=== PATIENT | male | born 1975 | race Caucasian/White ===

== ENCOUNTER 2018-04-25 04:38 | Emergency (ER) | payer OTHER ==
[~2018-04-25] VITALS: Ht 182.9 cm; Wt 125.2 kg
[~2018-04-25 04:38] MED LIST: ALBU90OI INH; AMLO5 PO; Amlodipine Besyl5 MG PO; ESCI10 PO; HYDCHL12.5 PO; Hydrochloroth12.5 MG PO; IBUP400 PO; IBUP800 PO; Inderal 20 mg T20 MG PO; Inderal60 MG; Inderal60 MG PO; LEVFLO500 PO; LISI20; LISI20 PO; Lexapro 10 mg T10 MG PO; METO25 PO; Norco 5-325 Ta1 EACH PO; OMEP10ER PO; OXYACE5T PO; PROM25 PO; SERT100 PO; SPACE CHAMBER1 EACH MC; TAMS.4ER PO; Vistaril25 MG PO; Voltaren100 GM TOP; Xanax0.5 MG PO; Zithromax250 MG PO
[2018-04-25] MEDS ORDERED: Vistaril25 MG PO ×4 (06:31→06:36)
[2018-04-25] MEDS ORDERED: IBUP800 PO ×2 (06:31→06:41)
[2018-04-25] MEDS ORDERED: HYDCHL12.5 PO ×3 (06:31→06:36)
[2018-04-25] MEDS ORDERED: LISI20 PO ×2 (06:31→06:36)
[2018-04-25] MEDS ORDERED: Lexapro 10 mg T10 MG PO ×3 (06:31→06:36)
[2018-04-25] MEDS ORDERED: Inderal 20 mg T20 MG PO ×2 (06:31→06:36)
[2018-04-25] MEDS ORDERED: CEPH500 PO (07:00)
[2018-04-25] MEDS ORDERED: Bactrim Ds Tab1 EACH PO (07:00)
[2018-04-25] MEDS ORDERED: Nystop60 GM TOP (07:00)
[2018-04-25] MEDS ORDERED: AMLO5 PO (20:56)
[2018-04-25] MEDS ORDERED: MICROZIDE12.5 MG PO (23:39)
[2018-04-26] MEDS ORDERED: LISI20 PO (02:48)
== END 2018-04-25 07:10 | disposition home or self-care (01) ==
LOC: ER 04:38
DX: L02.416 Cutaneous abscess of left lower limb (principal); B37.2 Candidiasis of skin and nail; Z79.899 Other long term (current) drug therapy; I10 Essential (primary) hypertension; F32.9 Major depressive disorder, single episode, unspecified; F41.9 Anxiety disorder, unspecified; E11.9 Type 2 diabetes mellitus without complications; F17.210 Nicotine dependence, cigarettes, uncomplicated
CPT/HCPCS: 10061; 99283-25

== ENCOUNTER 2018-04-25 16:33 | Inpatient (IN) | payer OTHER ==
[~2018-04-25] VITALS: Ht 182.9 cm; Wt 126.2 kg
[~2018-04-25 16:33] MED LIST changes: +Bactrim Ds Tab1 EACH PO; +CEPH500 PO; +Nystop60 GM TOP
[2018-04-25 17:47] LABS: BASOPHILS ABSOLUTE AUTO 0.03 K/mm3 (0.00-0.23); BASOPHILS PERCENT AUTO 0 % (0-2); EOSINOPHILS ABSOLUTE AUTO 0.02 K/mm3 (0.00-0.68); EOSINOPHILS PERCENT AUTO 0 % (0-6); Hematocrit 46.6 % (37.0-53.0); Hemoglobin 15.4 g/dL (13.5-17.5); IMMATURE GRAN ABSOLUTE AUTO 0.06 K/mm3 (0.00-0.10); IMMATURE GRAN PERCENT AUTO 0 % (0-1); LYMPHOCYTES ABSOLUTE AUTO 0.95 K/mm3 (0.84-5.20); LYMPHOCYTES PERCENT AUTO 7 % (21-46); MONOCYTES ABSOLUTE AUTO 0.74 K/mm3 (0.16-1.47); MONOCYTES PERCENT AUTO 5 % (4-13); Mean Corpuscular HGB 34.4 pg (26.0-34.0); Mean Corpuscular Volume 104 fL (80-100); Mean Platelet Volume 10.6 fL (9.1-12.4); NEUTROPHILS ABSOLUTE AUTO 12.43 K/mm3 (1.96-9.15); NEUTROPHILS PERCENT AUTO 87 % (41-73); Platelet Count 209 K/mm3 (150-400); RDW Coefficient Variation 15.1 % (11.7-14.2); RDW Standard Deviation 58.4 fL (35.1-46.3); Red Blood Cell Count 4.48 M/mm3 (4.30-5.90); White Blood Cell Count 14.23 K/mm3 (4.00-11.30)
[2018-04-25 18:04] LABS: Alanine Aminotransfer (ALT/SGP 49 U/L (12-78); Albumin, Blood 3.2 g/dL (3.4-5.0); Albumin/Globulin Ratio 0.8 (0.8-1.8); Alk Phos 91 U/L (50-136); Anion Gap 7 mmol/L (6-16); Aspartate Aminotrans (AST/SGOT 19 U/L (12-37); Bilirubin, Total 0.7 mg/dL (0.1-1.0); Blood Urea Nitrogen 10 mg/dL (8-24); Bun/Creatinine Ratio 13.2 (12.0-20.0); CO2, Blood 25 mmol/L (21-32); Calcium, Blood 8.6 mg/dL (8.5-10.1); Chloride, Blood 107 mmol/L (98-108); Creatinine, Blood 0.76 mg/dL (0.60-1.20); Globulin, Blood 3.8 g/dL (2.2-4.0); Glomerular Filtration Rate >60 (60-); Glucose, Blood 155 mg/dL (70-99); Potassium, Blood 3.4 mmol/L (3.5-5.5); Sodium, Blood 139 mmol/L (136-145)
[2018-04-25] MEDS ORDERED: AMLO5 PO (20:56)
[2018-04-25] MEDS ORDERED: MICROZIDE12.5 MG PO (23:39)
[2018-04-26] MEDS ORDERED: LISI20 PO (02:48)
[2018-04-26 05:30] LABS: BASOPHILS ABSOLUTE AUTO 0.01 K/mm3 (0.00-0.23); BASOPHILS PERCENT AUTO 0 % (0-2); EOSINOPHILS ABSOLUTE AUTO 0.02 K/mm3 (0.00-0.68); EOSINOPHILS PERCENT AUTO 0 % (0-6); Hematocrit 44.7 % (37.0-53.0); Hemoglobin 14.6 g/dL (13.5-17.5); IMMATURE GRAN ABSOLUTE AUTO 0.05 K/mm3 (0.00-0.10); IMMATURE GRAN PERCENT AUTO 0 % (0-1); LYMPHOCYTES ABSOLUTE AUTO 0.92 K/mm3 (0.84-5.20); LYMPHOCYTES PERCENT AUTO 8 % (21-46); MONOCYTES ABSOLUTE AUTO 0.83 K/mm3 (0.16-1.47); MONOCYTES PERCENT AUTO 7 % (4-13); Mean Corpuscular HGB 34.1 pg (26.0-34.0); Mean Corpuscular HGB Conc 32.7 g/dL (31.5-36.5); Mean Corpuscular Volume 104 fL (80-100); Mean Platelet Volume 10.6 fL (9.1-12.4); NEUTROPHILS ABSOLUTE AUTO 10.24 K/mm3 (1.96-9.15); NEUTROPHILS PERCENT AUTO 85 % (41-73); Platelet Count 190 K/mm3 (150-400); RDW Coefficient Variation 14.8 % (11.7-14.2); RDW Standard Deviation 57.9 fL (35.1-46.3); Red Blood Cell Count 4.28 M/mm3 (4.30-5.90); White Blood Cell Count 12.07 K/mm3 (4.00-11.30)
[2018-04-27 05:32] LABS: BASOPHILS ABSOLUTE AUTO 0.02 K/mm3 (0.00-0.23); BASOPHILS PERCENT AUTO 0 % (0-2); EOSINOPHILS ABSOLUTE AUTO 0.06 K/mm3 (0.00-0.68); EOSINOPHILS PERCENT AUTO 1 % (0-6); Hematocrit 44.3 % (37.0-53.0); Hemoglobin 14.5 g/dL (13.5-17.5); IMMATURE GRAN ABSOLUTE AUTO 0.05 K/mm3 (0.00-0.10); IMMATURE GRAN PERCENT AUTO 1 % (0-1); LYMPHOCYTES ABSOLUTE AUTO 0.99 K/mm3 (0.84-5.20); LYMPHOCYTES PERCENT AUTO 10 % (21-46); MONOCYTES ABSOLUTE AUTO 0.73 K/mm3 (0.16-1.47); MONOCYTES PERCENT AUTO 7 % (4-13); Mean Corpuscular HGB Conc 32.7 g/dL (31.5-36.5); Mean Corpuscular Volume 104 fL (80-100); Mean Platelet Volume 10.7 fL (9.1-12.4); NEUTROPHILS ABSOLUTE AUTO 8.19 K/mm3 (1.96-9.15); NEUTROPHILS PERCENT AUTO 82 % (41-73); Platelet Count 195 K/mm3 (150-400); RDW Coefficient Variation 14.7 % (11.7-14.2); RDW Standard Deviation 56.6 fL (35.1-46.3); Red Blood Cell Count 4.26 M/mm3 (4.30-5.90); White Blood Cell Count 10.04 K/mm3 (4.00-11.30)
[2018-04-27 06:04] LABS: Vancomycin, Trough 9.2 ug/mL (5.0-10.0)
== END 2018-04-27 15:03 | disposition home or self-care (01) | DRG 603 ==
LOC: ER 16:33 → MEDS 16:34
PROVIDERS: Hospitalist; Physician Assistant; ADMIT Hospitalist
DX: L03.116 Cellulitis of left lower limb (principal); I10 Essential (primary) hypertension; F41.8 Other specified anxiety disorders; F17.210 Nicotine dependence, cigarettes, uncomplicated; E87.6 Hypokalemia; E11.65 Type 2 diabetes mellitus with hyperglycemia; R00.0 Tachycardia, unspecified; B37.2 Candidiasis of skin and nail
CPT/HCPCS: 10061; 36415; 73701; 80053; 80202; 82947; 85025; 87040; 96365; 96366; 96367; 96372; 99283-25; 99284-25; G0378; J0690; J1650; J3370; J7050; Q9967

== ENCOUNTER 2018-05-16 11:52 | Observation (INO) | payer OTHER ==
[~2018-05-16] VITALS: Ht 182.9 cm; Wt 127.3 kg
[~2018-05-16 11:52] MED LIST changes: +MICROZIDE12.5 MG PO
[2018-05-16 13:09] LABS: BASOPHILS ABSOLUTE AUTO 0.05 K/mm3 (0.00-0.23); BASOPHILS PERCENT AUTO 1 % (0-2); EOSINOPHILS ABSOLUTE AUTO 0.03 K/mm3 (0.00-0.68); EOSINOPHILS PERCENT AUTO 0 % (0-6); Hematocrit 46.6 % (37.0-53.0); Hemoglobin 15.2 g/dL (13.5-17.5); IMMATURE GRAN ABSOLUTE AUTO 0.08 K/mm3 (0.00-0.10); IMMATURE GRAN PERCENT AUTO 1 % (0-1); LYMPHOCYTES ABSOLUTE AUTO 1.31 K/mm3 (0.84-5.20); LYMPHOCYTES PERCENT AUTO 13 % (21-46); MONOCYTES ABSOLUTE AUTO 0.61 K/mm3 (0.16-1.47); MONOCYTES PERCENT AUTO 6 % (4-13); Mean Corpuscular HGB 33.5 pg (26.0-34.0); Mean Corpuscular HGB Conc 32.6 g/dL (31.5-36.5); Mean Corpuscular Volume 103 fL (80-100); Mean Platelet Volume 10.8 fL (9.1-12.4); NEUTROPHILS ABSOLUTE AUTO 7.96 K/mm3 (1.96-9.15); NEUTROPHILS PERCENT AUTO 79 % (41-73); Platelet Count 244 K/mm3 (150-400); RDW Coefficient Variation 13.9 % (11.7-14.2); RDW Standard Deviation 53.2 fL (35.1-46.3); Red Blood Cell Count 4.54 M/mm3 (4.30-5.90); White Blood Cell Count 10.04 K/mm3 (4.00-11.30)
[2018-05-16 13:23] LABS: Alanine Aminotransfer (ALT/SGP 80 U/L (12-78); Albumin, Blood 3.2 g/dL (3.4-5.0); Albumin/Globulin Ratio 0.9 (0.8-1.8); Alk Phos 82 U/L (50-136); Anion Gap 10 mmol/L (6-16); Aspartate Aminotrans (AST/SGOT 28 U/L (12-37); Bilirubin, Total 0.2 mg/dL (0.1-1.0); Blood Urea Nitrogen 20 mg/dL (8-24); Bun/Creatinine Ratio 24.6 (12.0-20.0); CO2, Blood 25 mmol/L (21-32); Calcium, Blood 8.5 mg/dL (8.5-10.1); Chloride, Blood 106 mmol/L (98-108); Creatinine, Blood 0.81 mg/dL (0.60-1.20); Globulin, Blood 3.4 g/dL (2.2-4.0); Glomerular Filtration Rate >60 (60-); Glucose, Blood 227 mg/dL (70-99); Potassium, Blood 3.5 mmol/L (3.5-5.5); Sodium, Blood 141 mmol/L (136-145); Total Protein, Blood 6.6 g/dL (6.4-8.2); Troponin I <0.015 ng/mL (0.000-0.040)
[2018-05-16] MEDS ORDERED: LISI20 PO (16:58)
[2018-05-16] MEDS ORDERED: METF500C PO (17:00)
--- NOTE | 2018-05-16 19:12 | NUR ---
PT ADMITTED FROM ER. PT ORIENTED TO ROOM. MEDICATIONS UPDATED. TELE AND SCD'S IN PLACE. PT INDEPENDENT IN ROOM. WILL PASS ON TO ONCOMING NURSE
[2018-05-16 21:47] LABS: CPK Creatine Kinase 43 U/L (39-308)
[2018-05-16 21:58] LABS: Troponin I <0.015 ng/mL (0.000-0.040)
[2018-05-16 22:01] LABS: Creatine Kinase MB < 1.0 ng/mL (0.0-3.6); Creatine Kinase MB Index 2.3 (0.0-4.0)
[2018-05-17 05:07] LABS: BASOPHILS ABSOLUTE AUTO 0.04 K/mm3 (0.00-0.23); BASOPHILS PERCENT AUTO 1 % (0-2); EOSINOPHILS ABSOLUTE AUTO 0.03 K/mm3 (0.00-0.68); EOSINOPHILS PERCENT AUTO 0 % (0-6); Hematocrit 45.4 % (37.0-53.0); Hemoglobin 14.9 g/dL (13.5-17.5); IMMATURE GRAN ABSOLUTE AUTO 0.03 K/mm3 (0.00-0.10); IMMATURE GRAN PERCENT AUTO 0 % (0-1); LYMPHOCYTES ABSOLUTE AUTO 1.45 K/mm3 (0.84-5.20); LYMPHOCYTES PERCENT AUTO 17 % (21-46); MONOCYTES ABSOLUTE AUTO 0.77 K/mm3 (0.16-1.47); MONOCYTES PERCENT AUTO 9 % (4-13); Mean Corpuscular HGB 34.1 pg (26.0-34.0); Mean Corpuscular HGB Conc 32.8 g/dL (31.5-36.5); Mean Corpuscular Volume 104 fL (80-100); Mean Platelet Volume 10.7 fL (9.1-12.4); NEUTROPHILS ABSOLUTE AUTO 6.29 K/mm3 (1.96-9.15); NEUTROPHILS PERCENT AUTO 73 % (41-73); Platelet Count 226 K/mm3 (150-400); RDW Coefficient Variation 14.2 % (11.7-14.2); RDW Standard Deviation 54.9 fL (35.1-46.3); Red Blood Cell Count 4.37 M/mm3 (4.30-5.90); White Blood Cell Count 8.61 K/mm3 (4.00-11.30)
[2018-05-17 05:37] LABS: Anion Gap 8 mmol/L (6-16); Blood Urea Nitrogen 19 mg/dL (8-24); Bun/Creatinine Ratio 23.1 (12.0-20.0); CHOL/HDL RATIO 4.5; CO2, Blood 27 mmol/L (21-32); Calcium, Blood 8.1 mg/dL (8.5-10.1); Chloride, Blood 108 mmol/L (98-108); Cholesterol 195 mg/dL (50-200); Creatinine, Blood 0.82 mg/dL (0.60-1.20); Glomerular Filtration Rate >60 (60-); Glucose, Blood 120 mg/dL (70-99); HDL Cholesterol 43 mg/dL (>39); LDL/HDL RATIO 2.6; Low Density Lipoprotein Chol 111 mg/dL (0-110); Magnesium, Blood 2.1 mg/dL (1.6-2.4); Phosphorus, Blood 3.8 mg/dL (2.5-4.9); Potassium, Blood 3.4 mmol/L (3.5-5.5); Sodium, Blood 143 mmol/L (136-145); Triglycerides 207 mg/dL (30-160); Very Low Density Lipoprot Chol 41 mg/dL (6-32)
[2018-05-17 05:43] LABS: CPK Creatine Kinase 36 U/L (39-308); Troponin I <0.015 ng/mL (0.000-0.040)
[2018-05-17 05:46] LABS: Creatine Kinase MB < 1.0 ng/mL (0.0-3.6); Creatine Kinase MB Index 2.8 (0.0-4.0)
--- NOTE | 2018-05-17 06:25 | NUR ---
SHIFT SUMMARY: PT DENIES CHEST PAIN T/O SHIFT. CONT TO HAVE NEG TROPONINS, STRESS TEST THIS AM. NSR @ 67 PER INSPECTOR METAL CAN. C/O TENSION HEADACHE AT START OF SHIFT, RELIEVED BY 650 MG TYLENOL. DESCRIBES HEADACHE "BAND-LIKE". INDEPENDENT IN ROOM, A&O X 4. CBG @ 180 THIS SHIFT; NO COV INDICATED. WILL CONT TO MONITOR AND PROVIDE CARE UNTIL PRESUMED BY ONCOMING RN.
--- NOTE | 2018-05-17 11:44 | NUR ---
DR TOLBERT NOTIFIED OF HTN, SCHEDULED [facility] ORDERED.
--- NOTE | 2018-05-17 17:11 | NUR ---
SHIFT SUMMARY- PT A/OX4, INDEP IN ROOM. PT MEDICATED X1 WITH TYLENOL FOR GENERALIZED CHRONIC PAIN. LS CLEAR, ON RA. TELE NSR AT 70, PT DENIES ANY CHEST PAIN, 1ST PORTION OF STRESS TEST TODAY, SECOND PORTION TOMORROW AM AT 0800. RIGHT ANKLE SLIGHTLY SWOLLEN AND BRUISED FROM ANKLE SPRAIN. NO OTHER ACUTE CHANGES THIS SHIFT.
--- NOTE | 2018-05-17 17:25 | NUR ---
DR REQUESTING HIS HOME IBUPROFEN OF 800MG, PT REPORTS HE TAKES IT TWICE A DAY AT 0900 AND 2100 AT HOME FOR CHRONIC GENERALIZED PAIN. LAKISHA HURTADO CALLED AND IBUPROFEN ORDERED PER HOME MADI.
--- NOTE | 2018-05-18 07:15 | NUR ---
SHIFT SUMMARY: NO CHEST PAIN. NPO FOR BREAKFAST FOR IMPENDING STRESS TEST THIS AM. PT C/O OF HEADACHE 1X, TREATED c PRN TYLENOL. SCHEDULED MOTRIN ADMINISTERED FOR BODY ACHES. PRN HYDRALAZINE ADMINISTERED 1X FOR SBP >170. NO INSULIN COV REQURIED. WILL CONT TO MONITOR AND PROVIDE CARE.
--- NOTE | 2018-05-18 08:28 | NUR ---
[facility] AT BEDSIDE FOR SECOND PORTION OF STRESS TEST.
--- NOTE | 2018-05-18 15:22 | NUR ---
AML ANALYST CALLED AT APROX 1300 AND REPORTED PT HR HAD JUMPED UP TO THE 14O'S AND THEN CAME BACK DOWN TO LOW 100'S. PT REPORTS HE WAS UP AT THE BATHROOM AT THE TIME OF THIS AND WAS FEELING QUITE ANXIOUS DO TO NO NICOTINE AND GETTING A CALL FROM THE DR THAT HIS STRESS TEST WAS ABNORMAL. PT REFUSED NICOTINE PATCH THIS AM BUT REPORTS HE WILL TRY IT. NICOTINE PATCH PLACED. [employer] REPORTS PT IS CURRENTLY ST AT 102.
--- NOTE | 2018-05-18 16:09 | NUR ---
CARDILOGIST CAME IN AND SEEN PT. PT TO BE NPO AFTER MIDNIGHT FOR ANGIO TOMORROW AM. PT ANXIOUS AND TEARFUL REQUESTING PRN XANAX AND PERCOCET, STATES HE TAKES THEM AT HOME. CALLED AND SPOKE WITH DR TOLBERT WHO OK'D DAILY PRN XANAX AND ASKED TO VERIFY FROM PHARMACY THAT PT TAKES PERCOCET AT HOME. CALLED [facility] AND THEY REPORT THEY HAVE NOT FILLED ANYTHING STRONGER THAN IBUPROFEN. PERCOCET NOT ORDERED.
--- NOTE | 2018-05-19 06:19 | NUR ---
SHIFT SUMMARY: PT DENIES CHEST PAIN THIS SHIFT. NSR IN THE 90s PER MECHANICAL MANUFACTURING TECHNICIAN , REPORTS FEELING ANXIOUS AFTER RECIEVING NEWS THAT STRESS TEST WAS ABNORMAL. NPO SINCE MIDNIGHT FOR IMPENDING ANGIOGRAM 05/19. PT A&O, INDEPEDENT IN ROOM, PLEASANT + COOPERATIVE c CARE. NO PRN HYDRALAZINE REQUIRED; LAST BP 154/100. CBG 149; NO COV INDICATED. WILL CONT TO MONITOR AND PROVIDE CARE UNTIL PRESUMED BY ONCOMING RN.
--- NOTE | 2018-05-19 12:41 | NUR ---
Echocardiogram completed.
--- NOTE | 2018-05-19 13:25 | NUR ---
PT TAKEN TO DIESEL SERVICE TECHNICIAN PT TAKEN TO DIESEL SERVICE TECHNICIAN AT 1300. PT IN STABLE CONDITION WITH VSS. NEW IV PLACED BY MOLECULAR BIOLOGY SCIENTIST IN L FOREARM FOR PROCEDURE. PT TO RECOVER IN PCU.
--- NOTE | 2018-05-19 14:13 | NUR ---
REPORT GIVEN JIM PAULION IN PCU. REPORT GIVEN AT 1415.
--- NOTE | 2018-05-19 15:34 | NUR ---
LEXAPRO REFUSEL PT REFUSED LEXAPRO. HE STATED HE DIDN'T NEED IT. HE WILL RESTART AT 0900 TOMORROW WHICH IS HIS NORMAL SCHEDULE. HE WOULD TAKE A PERSOCET 5/325MG PERCOCET NOT BECAUSE HE WAS IN PAIN BUT BECAUSE IT MAKES HIM FEEL "EUPHORIC". PT DOES NOT HAVE AN ORDER FOR ANY OPIATES AT THIS TIME. CONTINUE POT.
--- NOTE | 2018-05-19 18:47 | NUR ---
EVENING NOTE PT ALERT. EATING WELL. VSS. RIGHT RADIAL TR SITE CD&I. HAVE REMOVED 4ML OF AIR SO FAR. PT MORE COMPLIANT AND AWARE OF NOT MOVING HIS RIGHT HAND AND WHY. FRIEND AT BEDSIDE. PT HASN'T ASKED FOR MORE NARCOTICS. CONTINUE POT.
--- NOTE | 2018-05-19 19:45 | NUR ---
ASSUMED CARE PT RESTING IN ROOM COMFORTABLY. PER DAY SHIFT PT WENT FOR ANGIO TODAY. TR BAND IN PLACE ON R WRIST. SITE INSPECTED AND WNL. BAND WILL BE DEFLATED PER PROTOCOL. SKIN IS PWD. RESP EVEN UNLABORED ON RA. DENIES ANY PAIN. REPORTS MILD SORENESS TO R FOREARM. PT ABLE TO AMBULATE W/O ASSIST TO RR. PT REPORTS WILL CALL FOR SBA D/T ANKLE SPRAIN PRIOR TO ADMIT. CALL LIGHT IS IN REACH.
--- NOTE | 2018-05-20 05:27 | NUR ---
SHIFT SUMMARY PT SLEEPING IN ROOM COMFORTABLY. PT HAS SLEPT OFF AND OF T/O NIGHT. PT ABLE TO AMBULATE TO RR W/ SBA. NO ACUTES CHANGES IN STATUS. TR BAND WAS FULLY DEFLATED AND TEGADERM PLACED TO INSERTION SITE. NO HEMATOMAS NOTES. PT DENIES N/T TO HAND. REPORTS SOME SORENESS TO FOREARM. SKIN IS PWD. RESP EVEN UNLABORED ON RA. DENIES OTHER NEEDS. CALL LIGHT IN REACH.
[2018-05-20 05:52] LABS: BASOPHILS ABSOLUTE AUTO 0.02 K/mm3 (0.00-0.23); BASOPHILS PERCENT AUTO 0 % (0-2); EOSINOPHILS ABSOLUTE AUTO 0.03 K/mm3 (0.00-0.68); EOSINOPHILS PERCENT AUTO 0 % (0-6); Hematocrit 47.5 % (37.0-53.0); Hemoglobin 15.4 g/dL (13.5-17.5); IMMATURE GRAN ABSOLUTE AUTO 0.06 K/mm3 (0.00-0.10); IMMATURE GRAN PERCENT AUTO 1 % (0-1); LYMPHOCYTES ABSOLUTE AUTO 1.26 K/mm3 (0.84-5.20); LYMPHOCYTES PERCENT AUTO 14 % (21-46); MONOCYTES ABSOLUTE AUTO 0.77 K/mm3 (0.16-1.47); MONOCYTES PERCENT AUTO 8 % (4-13); Mean Corpuscular HGB 33.8 pg (26.0-34.0); Mean Corpuscular HGB Conc 32.4 g/dL (31.5-36.5); Mean Corpuscular Volume 104 fL (80-100); Mean Platelet Volume 10.7 fL (9.1-12.4); NEUTROPHILS ABSOLUTE AUTO 7.05 K/mm3 (1.96-9.15); NEUTROPHILS PERCENT AUTO 77 % (41-73); Platelet Count 209 K/mm3 (150-400); RDW Coefficient Variation 14.3 % (11.7-14.2); Red Blood Cell Count 4.56 M/mm3 (4.30-5.90); White Blood Cell Count 9.19 K/mm3 (4.00-11.30)
[2018-05-20 06:10] LABS: Anion Gap 9 mmol/L (6-16); Blood Urea Nitrogen 26 mg/dL (8-24); CO2, Blood 25 mmol/L (21-32); Calcium, Blood 8.2 mg/dL (8.5-10.1); Chloride, Blood 108 mmol/L (98-108); Creatinine, Blood 0.84 mg/dL (0.60-1.20); Glomerular Filtration Rate >60 (60-); Glucose, Blood 159 mg/dL (70-99); Potassium, Blood 3.8 mmol/L (3.5-5.5); Sodium, Blood 142 mmol/L (136-145)
[2018-05-20] MEDS ORDERED: HYDCHL25 PO (12:43)
[2018-05-20] MEDS ORDERED: AMLO10 PO (12:45)
[2018-05-20] MEDS ORDERED: ASPI81CH PO (12:45)
[2018-05-20] MEDS ORDERED: ATOR40TA PO (12:46)
== END 2018-05-20 13:29 | disposition home or self-care (01) ==
LOC: ER 11:52 → MEDS 11:53 → PCU 05-19 13:25
PROVIDERS: Family Medicine; Physician Assistant; ADMIT Internal Medicine
DX: R07.9 Chest pain, unspecified (principal); R94.39 Abnormal result of other cardiovascular function study; I16.0 Hypertensive urgency; I10 Essential (primary) hypertension; E11.9 Type 2 diabetes mellitus without complications; F32.9 Major depressive disorder, single episode, unspecified; F41.9 Anxiety disorder, unspecified; E66.9 Obesity, unspecified; F17.210 Nicotine dependence, cigarettes, uncomplicated; Z79.82 Long term (current) use of aspirin; Z79.899 Other long term (current) drug therapy; Z68.38 Body mass index [BMI] 38.0-38.9, adult
CPT/HCPCS: 36415; 71046; 78452; 80048; 80053; 80061; 82550; 82553; 82947; 83036; 83735; 84100; 84484; 85025; 93005; 93010; 93017; 93306; 93458; 94760; 96374; 96375; 96376; 99152; 99153; 99285-25; A9500; C1769; C1894; G0378; J0360; J0706; J1644; J2250; J2785; J3010; J7030; Q9967

== ENCOUNTER 2018-11-03 17:38 | Emergency (ER) | payer OTHER ==
[~2018-11-03] VITALS: Ht 182.9 cm; Wt 122.5 kg
[~2018-11-03 17:38] MED LIST changes: +AMLO10 PO; +ASPI81CH PO; +ATOR40TA PO; +HYDCHL25 PO; +METF500C PO
[2018-11-03 18:07] LABS: BASOPHILS ABSOLUTE AUTO 0.02 K/mm3 (0.00-0.23); BASOPHILS PERCENT AUTO 0 % (0-2); EOSINOPHILS ABSOLUTE AUTO 0.04 K/mm3 (0.00-0.68); EOSINOPHILS PERCENT AUTO 0 % (0-6); Hematocrit 45.1 % (37.0-53.0); Hemoglobin 15.9 g/dL (13.5-17.5); IMMATURE GRAN ABSOLUTE AUTO 0.06 K/mm3 (0.00-0.10); IMMATURE GRAN PERCENT AUTO 1 % (0-1); LYMPHOCYTES ABSOLUTE AUTO 1.93 K/mm3 (0.84-5.20); LYMPHOCYTES PERCENT AUTO 18 % (21-46); MONOCYTES ABSOLUTE AUTO 1.12 K/mm3 (0.16-1.47); MONOCYTES PERCENT AUTO 11 % (4-13); Mean Corpuscular HGB 35.3 pg (26.0-34.0); Mean Corpuscular HGB Conc 35.3 g/dL (31.5-36.5); Mean Corpuscular Volume 100 fL (80-100); Mean Platelet Volume 10.5 fL (9.1-12.4); NEUTROPHILS ABSOLUTE AUTO 7.49 K/mm3 (1.96-9.15); NEUTROPHILS PERCENT AUTO 70 % (41-73); Platelet Count 265 K/mm3 (150-400); RDW Coefficient Variation 14.6 % (11.7-14.2); RDW Standard Deviation 53.3 fL (35.1-46.3); Red Blood Cell Count 4.51 M/mm3 (4.30-5.90); White Blood Cell Count 10.66 K/mm3 (4.00-11.30)
[2018-11-03 18:25] LABS: Alanine Aminotransfer (ALT/SGP 84 U/L (12-78); Albumin, Blood 3.6 g/dL (3.4-5.0); Albumin/Globulin Ratio 1.1 (0.8-1.8); Alk Phos 64 U/L (50-136); Anion Gap 6 mmol/L (6-16); Aspartate Aminotrans (AST/SGOT 38 U/L (12-37); Bilirubin, Total 0.5 mg/dL (0.1-1.0); Blood Urea Nitrogen 17 mg/dL (8-24); Bun/Creatinine Ratio 20.8 (12.0-20.0); CO2, Blood 30 mmol/L (21-32); Chloride, Blood 107 mmol/L (98-108); Creatinine, Blood 0.82 mg/dL (0.60-1.20); Globulin, Blood 3.4 g/dL (2.2-4.0); Glomerular Filtration Rate >60 (60-); Glucose, Blood 101 mg/dL (70-99); Potassium, Blood 2.5 mmol/L (3.5-5.5); Sodium, Blood 143 mmol/L (136-145)
[2018-11-03] MEDS ORDERED: ACET325 (18:33)
[2018-11-03] MEDS ORDERED: DEXA1 (18:34)
[2018-11-03] MEDS ORDERED: VARE1 PO (18:36)
[2018-11-03 19:12] LABS: U Amphetamine Screen Not Detected; U Barbituate Screen Not Detected; U Benzodiazapine Screen Not Detected; U Buprenorphine Screen Not Detected; U Cannabinoids Screen Not Detected; U Cocaine Screen Not Detected; U Methadone Screen Not Detected; U Methamphetamine Screen Not Detected; U Opiates Screen Not Detected; U Oxycodone Screen Not Detected; U Phencyclidine Screen Not Detected; U Propoxyphene Screen Not Detected
[2018-11-03 19:25] LABS: Ethanol (Alcohol), Blood, Med <3 mg/dL; Troponin I 0.017 ng/mL (0.000-0.040)
[2018-11-03 21:30] LABS: Anion Gap 7 mmol/L (6-16); Blood Urea Nitrogen 16 mg/dL (8-24); Bun/Creatinine Ratio 23.4 (12.0-20.0); CO2, Blood 29 mmol/L (21-32); Calcium, Blood 9.3 mg/dL (8.5-10.1); Chloride, Blood 105 mmol/L (98-108); Creatinine, Blood 0.69 mg/dL (0.60-1.20); Glomerular Filtration Rate >60 (60-); Glucose, Blood 107 mg/dL (70-99); Magnesium, Blood 2.4 mg/dL (1.6-2.4); Potassium, Blood 2.8 mmol/L (3.5-5.5); Sodium, Blood 141 mmol/L (136-145)
[2018-11-03] MEDS ORDERED: K-Dur20 MEQ PO (22:00)
[2018-11-03] MEDS ORDERED: SPIR25 PO (22:00)
== END 2018-11-03 22:16 | disposition home or self-care (01) ==
LOC: ER 17:38
PROVIDERS: Emergency Medicine; Physician Assistant
DX: E87.6 Hypokalemia (principal); Z79.899 Other long term (current) drug therapy; Z79.84 Long term (current) use of oral hypoglycemic drugs; Z79.82 Long term (current) use of aspirin; I10 Essential (primary) hypertension; F32.9 Major depressive disorder, single episode, unspecified; F41.9 Anxiety disorder, unspecified; E11.9 Type 2 diabetes mellitus without complications; Z72.0 Tobacco use
CPT/HCPCS: 36415; 80048; 80053; 83735; 84484; 85025; 93005; 93010; 96365; 96366; 96368; 99283-25; G0480; J3475; J3480

== ENCOUNTER 2019-05-07 12:43 | Emergency (ER) | payer OTHER ==
[~2019-05-07] VITALS: Ht 182.9 cm; Wt 113.4 kg
[~2019-05-07 12:43] MED LIST changes: +ACET325; +DEXA1; +K-Dur20 MEQ PO; +SPIR25 PO; +VARE1 PO
[2019-05-07 13:21] LABS: BASOPHILS ABSOLUTE AUTO 0.03 K/mm3 (0.00-0.23); BASOPHILS PERCENT AUTO 0 % (0-2); EOSINOPHILS ABSOLUTE AUTO 0.04 K/mm3 (0.00-0.68); EOSINOPHILS PERCENT AUTO 0 % (0-6); Hematocrit 48.2 % (37.0-53.0); Hemoglobin 16.1 g/dL (13.5-17.5); IMMATURE GRAN ABSOLUTE AUTO 0.11 K/mm3 (0.00-0.10); IMMATURE GRAN PERCENT AUTO 1 % (0-1); LYMPHOCYTES ABSOLUTE AUTO 1.19 K/mm3 (0.84-5.20); LYMPHOCYTES PERCENT AUTO 10 % (21-46); MONOCYTES ABSOLUTE AUTO 0.95 K/mm3 (0.16-1.47); MONOCYTES PERCENT AUTO 8 % (4-13); Mean Corpuscular HGB 34.8 pg (26.0-34.0); Mean Corpuscular HGB Conc 33.4 g/dL (31.5-36.5); Mean Corpuscular Volume 104 fL (80-100); Mean Platelet Volume 11.1 fL (9.1-12.4); NEUTROPHILS ABSOLUTE AUTO 10.25 K/mm3 (1.96-9.15); NEUTROPHILS PERCENT AUTO 82 % (41-73); Platelet Count 260 K/mm3 (150-400); RDW Coefficient Variation 15.1 % (11.7-14.2); RDW Standard Deviation 58.6 fL (35.1-46.3); Red Blood Cell Count 4.62 M/mm3 (4.30-5.90); White Blood Cell Count 12.57 K/mm3 (4.00-11.30)
[2019-05-07 13:37] LABS: Alanine Aminotransfer (ALT/SGP 109 U/L (12-78); Albumin, Blood 3.4 g/dL (3.4-5.0); Albumin/Globulin Ratio 0.9 (0.8-1.8); Alk Phos 88 U/L (50-136); Anion Gap 7 mmol/L (6-16); Aspartate Aminotrans (AST/SGOT 46 U/L (12-37); Bilirubin, Total 0.4 mg/dL (0.1-1.0); Blood Urea Nitrogen 7 mg/dL (8-24); Bun/Creatinine Ratio 8.4 (12.0-20.0); CO2, Blood 26 mmol/L (21-32); Calcium, Blood 8.6 mg/dL (8.5-10.1); Chloride, Blood 110 mmol/L (98-108); Creatinine, Blood 0.83 mg/dL (0.60-1.20); Globulin, Blood 3.8 g/dL (2.2-4.0); Glomerular Filtration Rate >60 (60-); Glucose, Blood 160 mg/dL (70-99); Potassium, Blood 3.1 mmol/L (3.5-5.5); Sodium, Blood 143 mmol/L (136-145); Total Protein, Blood 7.2 g/dL (6.4-8.2); Troponin I <0.015 ng/mL (0.000-0.040)
[2019-05-07] MEDS ORDERED: MOTION RELIEF25 MG PO (14:20)
[2019-05-07] MEDS ORDERED: ONDA4ODT SL (14:20)
[2019-05-07 14:27] LABS: Source, Urine Voided
[2019-05-07 14:36] LABS: Bilirubin, Urine Neg (Neg); Blood, Urine Neg (Neg); Glucose Qualitative, Urine 4+ (Neg); Ketones, Urine 1+ (Neg); Leukocyte Esterase, Urine Neg (Neg); Nitrite, Urine Neg (Neg); Protein, Urine 1+ (Neg); Specific Gravity, Urine 1.015 (1.003-1.022); Urobilinogen, Urine NORM (Normal)
[2019-05-07 14:41] LABS: Appearance, Urine Clear (Clear); Color, Urine Yellow (P-Yellow)
== END 2019-05-07 14:56 | disposition home or self-care (01) ==
LOC: ER 12:43
PROVIDERS: Emergency Medicine
DX: K42.9 Umbilical hernia without obstruction or gangrene (principal); E87.6 Hypokalemia; R42 Dizziness and giddiness; I10 Essential (primary) hypertension; E11.9 Type 2 diabetes mellitus without complications; Z79.82 Long term (current) use of aspirin; Z79.899 Other long term (current) drug therapy; F41.9 Anxiety disorder, unspecified; F32.9 Major depressive disorder, single episode, unspecified; F17.200 Nicotine dependence, unspecified, uncomplicated
CPT/HCPCS: 36415; 71046; 80053; 84443; 84484; 85025; 93005; 93010; 96361; 96374; 99284-25; J2405; J7030

== ENCOUNTER 2019-09-30 19:53 | Observation (INO) | payer OTHER ==
[~2019-09-30] VITALS: Ht 182.9 cm; Wt 107.1 kg
[~2019-09-30 19:53] MED LIST changes: -AMLO10 PO; +MOTION RELIEF25 MG PO; +ONDA4ODT SL
[2019-09-30 20:41] LABS: BASOPHILS ABSOLUTE AUTO 0.02 K/mm3 (0.00-0.23); BASOPHILS PERCENT AUTO 0 % (0-2); EOSINOPHILS ABSOLUTE AUTO 0.06 K/mm3 (0.00-0.68); EOSINOPHILS PERCENT AUTO 1 % (0-6); Hemoglobin 15.6 g/dL (13.5-17.5); IMMATURE GRAN ABSOLUTE AUTO 0.09 K/mm3 (0.00-0.10); IMMATURE GRAN PERCENT AUTO 1 % (0-1); LYMPHOCYTES ABSOLUTE AUTO 1.57 K/mm3 (0.84-5.20); LYMPHOCYTES PERCENT AUTO 12 % (21-46); MONOCYTES ABSOLUTE AUTO 0.73 K/mm3 (0.16-1.47); MONOCYTES PERCENT AUTO 6 % (4-13); Mean Corpuscular HGB Conc 33.9 g/dL (31.5-36.5); Mean Corpuscular Volume 100 fL (80-100); NEUTROPHILS ABSOLUTE AUTO 10.28 K/mm3 (1.96-9.15); NEUTROPHILS PERCENT AUTO 81 % (41-73); NRBC ABSOLUTE 0.02 K/mm3 (0.00-0.02); NRBC Auto 0.2 /100 WBC (0.0-0.2); Platelet Count 260 K/mm3 (150-400); RDW Coefficient Variation 15.2 % (11.7-14.2); RDW Standard Deviation 55.6 fL (35.1-46.3); Red Blood Cell Count 4.59 M/mm3 (4.30-5.90); White Blood Cell Count 12.75 K/mm3 (4.00-11.30)
[2019-09-30 21:00] LABS: Alanine Aminotransfer (ALT/SGP 62 U/L (12-78); Albumin, Blood 2.8 g/dL (3.4-5.0); Albumin/Globulin Ratio 0.8 (0.8-1.8); Alk Phos 98 U/L (50-136); Anion Gap 8 mmol/L (6-16); Aspartate Aminotrans (AST/SGOT 32 U/L (12-37); Bilirubin, Total 0.5 mg/dL (0.1-1.0); Blood Urea Nitrogen 7 mg/dL (8-24); Bun/Creatinine Ratio 10.2 (12.0-20.0); CO2, Blood 31 mmol/L (21-32); Calcium, Blood 7.8 mg/dL (8.5-10.1); Chloride, Blood 103 mmol/L (98-108); Creatinine, Blood 0.69 mg/dL (0.60-1.20); Globulin, Blood 3.7 g/dL (2.2-4.0); Glomerular Filtration Rate >60 (60-); Glucose, Blood 255 mg/dL (70-99); Potassium, Blood 2.5 mmol/L (3.5-5.5); Sodium, Blood 142 mmol/L (136-145); Total Protein, Blood 6.5 g/dL (6.4-8.2); Troponin I <0.015 ng/mL (0.000-0.040)
[2019-09-30] MEDS ORDERED: TRAM50 PO (21:25)
[2019-09-30] MEDS ORDERED: ESCI10 PO (21:32)
[2019-09-30] MEDS ORDERED: AMLO5 PO (21:34)
[2019-09-30 22:17] LABS: Thyroid Stimulating Hormone 0.792 uIU/mL (0.360-4.800)
[2019-09-30] MEDS ORDERED: Inderal 20 mg T20 MG PO (23:00)
--- NOTE | 2019-10-01 07:07 | NUR ---
SHIFT SUMMARY PATIENT ADMITTED TO THE UNIT VIA STRETCHER. PATIENT IS ALERT AND ORIENTED AND ABLE TO AMBULATE INDEPENDENTLY. HE HAS HAD NO COMPLAINTS OF CHEST PAIN OR PRESSURE OVERNIGHT. TELE MONITOR IN PLACE. IV PATENT AND FLUSHED. ORDER OBTAINED FROM DR GARCIA FOR THE PATIENT TO HAVE A NICOTINE PATCH. BED IN LOWEST POSITION WITH WHEELS LOCKED. CALL LIGHT AND BELONGINGS WITHIN REACH. REPORT GIVEN TO ONCOMING RN.
[2019-10-01 08:04] LABS: BASOPHILS ABSOLUTE AUTO 0.01 K/mm3 (0.00-0.23); BASOPHILS PERCENT AUTO 0 % (0-2); EOSINOPHILS ABSOLUTE AUTO 0.05 K/mm3 (0.00-0.68); EOSINOPHILS PERCENT AUTO 1 % (0-6); Hematocrit 42.1 % (37.0-53.0); Hemoglobin 14.4 g/dL (13.5-17.5); IMMATURE GRAN ABSOLUTE AUTO 0.08 K/mm3 (0.00-0.10); IMMATURE GRAN PERCENT AUTO 1 % (0-1); LYMPHOCYTES ABSOLUTE AUTO 1.53 K/mm3 (0.84-5.20); LYMPHOCYTES PERCENT AUTO 14 % (21-46); MONOCYTES PERCENT AUTO 7 % (4-13); Mean Corpuscular HGB 34.3 pg (26.0-34.0); Mean Corpuscular HGB Conc 34.2 g/dL (31.5-36.5); Mean Corpuscular Volume 100 fL (80-100); Mean Platelet Volume 10.6 fL (9.1-12.4); NEUTROPHILS PERCENT AUTO 78 % (41-73); Platelet Count 231 K/mm3 (150-400); RDW Coefficient Variation 15.2 % (11.7-14.2); RDW Standard Deviation 55.7 fL (35.1-46.3); White Blood Cell Count 11.07 K/mm3 (4.00-11.30)
[2019-10-01 08:25] LABS: Anion Gap 8 mmol/L (6-16); Blood Urea Nitrogen 9 mg/dL (8-24); Bun/Creatinine Ratio 13.9 (12.0-20.0); CO2, Blood 31 mmol/L (21-32); Calcium, Blood 7.7 mg/dL (8.5-10.1); Chloride, Blood 103 mmol/L (98-108); Creatinine, Blood 0.65 mg/dL (0.60-1.20); Glomerular Filtration Rate >60 (60-); Glucose, Blood 212 mg/dL (70-99); Potassium, Blood 2.7 mmol/L (3.5-5.5); Sodium, Blood 142 mmol/L (136-145); Troponin I <0.015 ng/mL (0.000-0.040)
--- NOTE | 2019-10-01 16:24 | NUR ---
PATIENT HAD AND UNEVENTFUL DAY. HE DID MENTION A FEW THINGS ABOUT HIS MEDICATIONS THAT HE WANTED ADJUSTED. I NOTIFIED DR Ezio CALDERÓN OF THESE CONCERNS PLUS ADDITIONAL CONCERNS SUCH THAT THE PATIENT WAS REFUSING HIS INSULIN, THE PATIENT STATED THAT HIS TRAMADOL DOSE WAS INCORRECT, THE PATIENT WAS ASKING THAT HIS NICOTINE PATCH BE INCREASED TO 21MG AND THE PATIENT REFUSED HIS LIPITOR. DR Ezio KONG PROVIDED VERBAL ORDERS TO ADJUST THE NICOTINE PATCH DOSE AND SAID HE WOULD DISCUSS THE OTHER ISSUES WITH THE PATIENT. THE PATIENT IS PLEASANT AND COOPERATIVE WITH STAFF. HIS POTASSIUM LEVEL REMAINS LOW SO HE IS RECEIVING 3 K-RIDERS TODAY ALONG WITH PO KCL. ASIDE FROM SOME CHRONIC RIB PAIN THAT THE PATIENT COMPLAINED OF THIS AM, THE PATIENT HAS NOT MENTIONED PAIN ALL DAY. THE PATIENT IS IN HIS ROOM AT THIS TIME RELAXING. WILL CONTINUE TO MONITOR AND PROVIDE CARE NEEDED.
[2019-10-01 16:46] LABS: Anion Gap 4 mmol/L (6-16); Blood Urea Nitrogen 11 mg/dL (8-24); Bun/Creatinine Ratio 14.7 (12.0-20.0); CO2, Blood 32 mmol/L (21-32); Calcium, Blood 8.4 mg/dL (8.5-10.1); Chloride, Blood 104 mmol/L (98-108); Creatinine, Blood 0.75 mg/dL (0.60-1.20); Glomerular Filtration Rate >60 (60-); Glucose, Blood 168 mg/dL (70-99); Potassium, Blood 3.2 mmol/L (3.5-5.5); Sodium, Blood 140 mmol/L (136-145)
--- NOTE | 2019-10-02 05:40 | NUR ---
SHIFT SUMMARY PATIENT ALERT AND ORIENTED. HAS HAD NO COMPLAINTS OF CHEST PAIN OR PRESSURE OVERNIGHT. PATIENT MEDICATED PER EMAR FOR PAIN. IV PATENT AND FLUSHED. BED IN LOWEST POSITION WITH WHEELS LOCKED. CALL LIGHT AND BELONGINGS WITHIN REACH. REPORT GIVEN TO ONCOMING RN.
[2019-10-02 08:38] LABS: BASOPHILS ABSOLUTE AUTO 0.02 K/mm3 (0.00-0.23); BASOPHILS PERCENT AUTO 0 % (0-2); EOSINOPHILS ABSOLUTE AUTO 0.04 K/mm3 (0.00-0.68); EOSINOPHILS PERCENT AUTO 0 % (0-6); Hematocrit 42.8 % (37.0-53.0); Hemoglobin 14.5 g/dL (13.5-17.5); IMMATURE GRAN PERCENT AUTO 1 % (0-1); LYMPHOCYTES ABSOLUTE AUTO 1.41 K/mm3 (0.84-5.20); LYMPHOCYTES PERCENT AUTO 14 % (21-46); MONOCYTES ABSOLUTE AUTO 0.71 K/mm3 (0.16-1.47); MONOCYTES PERCENT AUTO 7 % (4-13); Mean Corpuscular HGB 34.5 pg (26.0-34.0); Mean Corpuscular HGB Conc 33.9 g/dL (31.5-36.5); Mean Corpuscular Volume 102 fL (80-100); Mean Platelet Volume 10.5 fL (9.1-12.4); NEUTROPHILS ABSOLUTE AUTO 7.95 K/mm3 (1.96-9.15); NEUTROPHILS PERCENT AUTO 78 % (41-73); NRBC ABSOLUTE 0.03 K/mm3 (0.00-0.02); NRBC Auto 0.3 /100 WBC (0.0-0.2); Platelet Count 228 K/mm3 (150-400); RDW Coefficient Variation 15.4 % (11.7-14.2); RDW Standard Deviation 57.8 fL (35.1-46.3); White Blood Cell Count 10.23 K/mm3 (4.00-11.30)
[2019-10-02 08:59] LABS: Anion Gap 5 mmol/L (6-16); Blood Urea Nitrogen 11 mg/dL (8-24); Bun/Creatinine Ratio 17.1 (12.0-20.0); CO2, Blood 30 mmol/L (21-32); Calcium, Blood 8.2 mg/dL (8.5-10.1); Chloride, Blood 105 mmol/L (98-108); Creatinine, Blood 0.64 mg/dL (0.60-1.20); Glomerular Filtration Rate >60 (60-); Glucose, Blood 239 mg/dL (70-99); Potassium, Blood 3.2 mmol/L (3.5-5.5); Sodium, Blood 140 mmol/L (136-145)
--- NOTE | 2019-10-02 17:43 | NUR ---
no acute changes to pt. call light with in reach. pt alert and oriented and able to express any needs. he is independent in the room.
--- NOTE | 2019-10-03 05:23 | NUR ---
ORTHODONTIST SUMMARY Comfortable throughout the night after 100mg tramadol given for fractured rib pain from a previous injury. Patient is anxious to hear what might be causing his problems, and looks forward to seeing the Hospitalist today. Ativan given for anxiety per orders. Patient is A&OX4 and up independently in his room
[2019-10-03 09:41] LABS: Anion Gap 7 mmol/L (6-16); Blood Urea Nitrogen 11 mg/dL (8-24); Bun/Creatinine Ratio 18.1 (12.0-20.0); CO2, Blood 25 mmol/L (21-32); Calcium, Blood 8.6 mg/dL (8.5-10.1); Chloride, Blood 103 mmol/L (98-108); Creatinine, Blood 0.61 mg/dL (0.60-1.20); Glomerular Filtration Rate >60 (60-); Glucose, Blood 339 mg/dL (70-99); Sodium, Blood 135 mmol/L (136-145)
[2019-10-03] MEDS ORDERED: PROPRANOLOL HC160 MG PO (13:37)
[2019-10-03] MEDS ORDERED: ATOR20 PO (13:38)
[2019-10-03] MEDS ORDERED: ARIP10 PO (13:38)
[2019-10-03] MEDS ORDERED: BASAGLAR K100 UNIT/1 SC (13:41)
[2019-10-03] MEDS ORDERED: Prinivil10 MG PO (13:42)
[2019-10-03] MEDS ORDERED: METF500 PO (13:43)
[2019-10-03] MEDS ORDERED: POTCHL20ER PO (13:44)
--- NOTE | 2019-10-03 15:04 | NUR ---
DISCHARGE SUMMARY PT DISCHARGED TO HOME. PT LEFT ROOM VIA WHEELCHAIR AND GASTROENTEROLOGY TEACHER ESCORT PRIOR TO THIS NOTE. PT EDUCATED ON ALL DISCHARGE INSTRUCTIONS, ALL QUESTIONS ANSWERED. PT AGREES TO FOLLOW UP WITH PCP AND DR MCCLELLAND ORDERED. PT AGREES TO TAKE MEDICATIONS ORDERED WELL. IV DC'D AND BELONGINGS RETURNED.
== END 2019-10-03 14:55 | disposition home or self-care (01) ==
LOC: ER 19:53 → MEDS 19:54
PROVIDERS: Emergency Medicine; Family Medicine; Internal Medicine Endocrinology, Diabetes & Metabolism; ADMIT Family Medicine
DX: E87.6 Hypokalemia (principal); E24.9 Cushing's syndrome, unspecified; E11.65 Type 2 diabetes mellitus with hyperglycemia; E78.5 Hyperlipidemia, unspecified; E66.01 Morbid (severe) obesity due to excess calories; Z68.35 Body mass index [BMI] 35.0-35.9, adult; I10 Essential (primary) hypertension; G89.29 Other chronic pain; G47.33 Obstructive sleep apnea (adult) (pediatric); Z79.4 Long term (current) use of insulin; Z79.899 Other long term (current) drug therapy; F32.9 Major depressive disorder, single episode, unspecified; F17.210 Nicotine dependence, cigarettes, uncomplicated
CPT/HCPCS: 36415; 70450; 71046; 80048; 80053; 82533; 82947; 83690; 84443; 84484; 85025; 93005; 93010; 96365; 96366; 97162; 99285-25; A9270; A9270-GY; G0378; J1815; J3480

== ENCOUNTER 2019-10-06 17:19 | Emergency (ER) | payer OTHER ==
[~2019-10-06] VITALS: Ht 182.9 cm; Wt 108.0 kg
[~2019-10-06 17:19] MED LIST changes: +ARIP10 PO; +ATOR20 PO; +BASAGLAR K100 UNIT/1 SC; +METF500 PO; +POTCHL20ER PO; +PROPRANOLOL HC160 MG PO; +Prinivil10 MG PO; +TRAM50 PO
[2019-10-06] MEDS ORDERED: SULTRIDS PO (20:10)
[2019-10-06] MEDS ORDERED: HYDR1TAB94 PO (20:11)
== END 2019-10-06 20:24 | disposition home or self-care (01) ==
LOC: ER 17:19
DX: K13.0 Diseases of lips (principal); I10 Essential (primary) hypertension; F32.9 Major depressive disorder, single episode, unspecified; F41.9 Anxiety disorder, unspecified; E11.9 Type 2 diabetes mellitus without complications; F17.200 Nicotine dependence, unspecified, uncomplicated; Z79.899 Other long term (current) drug therapy; Z79.4 Long term (current) use of insulin
CPT/HCPCS: 99283; A9270; A9270-GY; J1100

== ENCOUNTER → 2020-01-20 | Outpatient (CLI) | payer OTHER ==
[~2020-01-20] MED LIST changes: +HYDR1TAB94 PO; +SULTRIDS PO
== END ==
LOC: LAB EV 15:20 → LAB SHORT 15:20
DX: Z20.828 Contact with and (suspected) exposure to other viral communicable diseases (principal)
CPT/HCPCS: U0003

== ENCOUNTER → 2020-03-08 | Outpatient (CLI) | payer OTHER | END | disposition home or self-care (01) | LOC: LAB SHORT 07:15 → LAB 07:15 → LAB FUT 11-17 12:35 | PROVIDERS: Neurological Surgery | DX: E24.9 Cushing's syndrome, unspecified (principal) | CPT/HCPCS: 81050 ==

== ENCOUNTER 2020-07-20 15:47 | Emergency (ER) | payer OTHER ==
[~2020-07-20] VITALS: Ht 182.9 cm; Wt 128.4 kg
[~2020-07-20 15:47] MED LIST changes: -ARIP10 PO; -POTCHL20ER PO; -PROPRANOLOL HC160 MG PO
[2020-07-20 16:18] LABS: BASOPHILS ABSOLUTE AUTO 0.08 K/mm3 (0.00-0.23); BASOPHILS PERCENT AUTO 1 % (0-2); EOSINOPHILS ABSOLUTE AUTO 0.09 K/mm3 (0.00-0.68); EOSINOPHILS PERCENT AUTO 1 % (0-6); Hematocrit 41.9 % (37.0-53.0); Hemoglobin 13.6 g/dL (13.5-17.5); IMMATURE GRAN ABSOLUTE AUTO 0.14 K/mm3 (0.00-0.10); IMMATURE GRAN PERCENT AUTO 2 % (0-1); LYMPHOCYTES ABSOLUTE AUTO 1.89 K/mm3 (0.84-5.20); LYMPHOCYTES PERCENT AUTO 21 % (21-46); MONOCYTES ABSOLUTE AUTO 1.04 K/mm3 (0.16-1.47); MONOCYTES PERCENT AUTO 11 % (4-13); Mean Corpuscular HGB 33.7 pg (26.0-34.0); Mean Corpuscular HGB Conc 32.5 g/dL (31.5-36.5); Mean Corpuscular Volume 104 fL (80-100); Mean Platelet Volume 10.1 fL (9.1-12.4); NEUTROPHILS ABSOLUTE AUTO 5.95 K/mm3 (1.96-9.15); NEUTROPHILS PERCENT AUTO 65 % (41-73); NRBC ABSOLUTE 0.14 K/mm3 (0.00-0.02); NRBC Auto 1.5 /100 WBC (0.0-0.2); Platelet Count 403 K/mm3 (150-400); RDW Coefficient Variation 16.7 % (11.7-14.2); RDW Standard Deviation 62.8 fL (35.1-46.3); Red Blood Cell Count 4.03 M/mm3 (4.30-5.90); White Blood Cell Count 9.19 K/mm3 (4.00-11.30)
[2020-07-20 16:44] LABS: Alanine Aminotransfer (ALT/SGP 60 U/L (12-78); Albumin, Blood 3.1 g/dL (3.4-5.0); Albumin/Globulin Ratio 0.8 (0.8-1.8); Alk Phos 76 U/L (50-136); Anion Gap 7 mmol/L (6-16); Aspartate Aminotrans (AST/SGOT 53 U/L (12-37); Bilirubin, Total 0.5 mg/dL (0.1-1.0); Blood Urea Nitrogen 2 mg/dL (8-24); Bun/Creatinine Ratio 2.2 (12.0-20.0); CO2, Blood 26 mmol/L (21-32); Calcium, Blood 8.7 mg/dL (8.5-10.1); Chloride, Blood 108 mmol/L (98-108); Creatinine, Blood 0.89 mg/dL (0.60-1.20); Glomerular Filtration Rate >60 (60-); Glucose, Blood 162 mg/dL (70-99); Sodium, Blood 141 mmol/L (136-145); Total Protein, Blood 7.1 g/dL (6.4-8.2)
[2020-07-20 20:36] LABS: Source, Urine Catheter
[2020-07-20 20:38] LABS: Bilirubin, Urine Neg (Neg); Blood, Urine Neg (Neg); Glucose Qualitative, Urine Neg (Neg); Ketones, Urine Neg (Neg); Leukocyte Esterase, Urine Neg (Neg); Nitrite, Urine Neg (Neg); Protein, Urine Neg (Neg); Urobilinogen, Urine NORM (Normal)
[2020-07-20 20:42] LABS: Color, Urine Yellow (P-Yellow)
[2020-07-20 20:43] LABS: Appearance, Urine Clear (Clear)
[2020-08-02] MEDS ORDERED: LISI20 PO (22:10)
[2020-08-02] MEDS ORDERED: PROPRANOLOL HC160 MG PO (22:10)
[2020-08-02] MEDS ORDERED: POTCHL20ER PO (22:12)
[2020-08-02] MEDS ORDERED: Abilify2 MG PO (22:13)
[2020-08-02] MEDS ORDERED: ESCI20 PO (22:13)
[2020-08-02] MEDS ORDERED: DDAVP0.1 M1 PO (22:14)
[2020-08-02] MEDS ORDERED: HYDCOR20 PO (22:15)
[2020-08-07] MEDS ORDERED: INSULANPEN SC (15:07)
[2020-08-07] MEDS ORDERED: TRAM50 PO (15:09)
[2020-08-07] MEDS ORDERED: EUTHYROX175 MCG PO (15:11)
== END 2020-07-20 22:18 | disposition home or self-care (01) ==
LOC: ER 15:47
PROVIDERS: Emergency Medicine; Physician Assistant
DX: G97.51 Postprocedural hemorrhage of a nervous system organ or structure following a nervous system procedure (principal); I10 Essential (primary) hypertension; E11.9 Type 2 diabetes mellitus without complications; F17.200 Nicotine dependence, unspecified, uncomplicated; Z79.899 Other long term (current) drug therapy; Z79.84 Long term (current) use of oral hypoglycemic drugs
CPT/HCPCS: 36415; 70450; 80053; 81003; 85025; 85651; 86140; 96374; 99285-25; J1100

== ENCOUNTER 2020-07-31 09:02 | Emergency (ER) | payer OTHER ==
[~2020-07-31] VITALS: Ht 182.9 cm; Wt 121.6 kg
[2020-07-31] MEDS ORDERED: Bactrim Ds Tab1 EACH PO (10:07)
[2020-08-02] MEDS ORDERED: PROPRANOLOL HC160 MG PO (22:10)
[2020-08-02] MEDS ORDERED: LISI20 PO (22:10)
[2020-08-02] MEDS ORDERED: POTCHL20ER PO (22:12)
[2020-08-02] MEDS ORDERED: ESCI20 PO (22:13)
[2020-08-02] MEDS ORDERED: Abilify2 MG PO (22:13)
[2020-08-02] MEDS ORDERED: DDAVP0.1 M1 PO (22:14)
[2020-08-02] MEDS ORDERED: HYDCOR20 PO (22:15)
[2020-08-07] MEDS ORDERED: INSULANPEN SC (15:07)
[2020-08-07] MEDS ORDERED: TRAM50 PO (15:09)
[2020-08-07] MEDS ORDERED: EUTHYROX175 MCG PO (15:11)
== END 2020-07-31 10:30 | disposition home or self-care (01) ==
LOC: ER 09:02
DX: L05.91 Pilonidal cyst without abscess (principal); I10 Essential (primary) hypertension; Z79.899 Other long term (current) drug therapy
CPT/HCPCS: 10060; 99283-25

== ENCOUNTER 2020-08-02 17:02 | Emergency (ER) | payer OTHER ==
[~2020-08-02] VITALS: Ht 182.9 cm; Wt 126.1 kg
[2020-08-02 18:04] LABS: BASOPHILS ABSOLUTE AUTO 0.09 K/mm3 (0.00-0.23); BASOPHILS PERCENT AUTO 1 % (0-2); EOSINOPHILS ABSOLUTE AUTO 0.21 K/mm3 (0.00-0.68); EOSINOPHILS PERCENT AUTO 3 % (0-6); Hematocrit 43.9 % (37.0-53.0); Hemoglobin 14.9 g/dL (13.5-17.5); IMMATURE GRAN ABSOLUTE AUTO 0.12 K/mm3 (0.00-0.10); IMMATURE GRAN PERCENT AUTO 2 % (0-1); LYMPHOCYTES ABSOLUTE AUTO 2.69 K/mm3 (0.84-5.20); LYMPHOCYTES PERCENT AUTO 33 % (21-46); MONOCYTES ABSOLUTE AUTO 0.81 K/mm3 (0.16-1.47); MONOCYTES PERCENT AUTO 10 % (4-13); Mean Corpuscular HGB 33.4 pg (26.0-34.0); Mean Corpuscular HGB Conc 33.9 g/dL (31.5-36.5); Mean Corpuscular Volume 98 fL (80-100); Mean Platelet Volume 10.3 fL (9.1-12.4); NEUTROPHILS ABSOLUTE AUTO 4.32 K/mm3 (1.96-9.15); NEUTROPHILS PERCENT AUTO 53 % (41-73); Platelet Count 486 K/mm3 (150-400); RDW Coefficient Variation 14.7 % (11.7-14.2); RDW Standard Deviation 53.5 fL (35.1-46.3); Red Blood Cell Count 4.46 M/mm3 (4.30-5.90); White Blood Cell Count 8.24 K/mm3 (4.00-11.30)
[2020-08-02 18:25] LABS: Alanine Aminotransfer (ALT/SGP 40 U/L (12-78); Albumin, Blood 2.9 g/dL (3.4-5.0); Albumin/Globulin Ratio 0.6 (0.8-1.8); Alk Phos 104 U/L (50-136); Anion Gap 10 mmol/L (6-16); Aspartate Aminotrans (AST/SGOT 40 U/L (12-37); Bilirubin, Total 0.4 mg/dL (0.1-1.0); Blood Urea Nitrogen 13 mg/dL (8-24); Bun/Creatinine Ratio 9.8 (12.0-20.0); CO2, Blood 17 mmol/L (21-32); Calcium, Blood 9.5 mg/dL (8.5-10.1); Chloride, Blood 104 mmol/L (98-108); Creatinine, Blood 1.32 mg/dL (0.60-1.20); Globulin, Blood 5.1 g/dL (2.2-4.0); Glomerular Filtration Rate >60 (60-); Glucose, Blood 176 mg/dL (70-99); Sodium, Blood 131 mmol/L (136-145)
[2020-08-02] MEDS ORDERED: PROPRANOLOL HC160 MG PO ×2 (22:10)
[2020-08-02] MEDS ORDERED: LISI20 PO ×2 (22:10)
[2020-08-02] MEDS ORDERED: POTCHL20ER PO ×2 (22:12)
[2020-08-02] MEDS ORDERED: Abilify2 MG PO ×2 (22:13)
[2020-08-02] MEDS ORDERED: ESCI20 PO ×2 (22:13)
[2020-08-02] MEDS ORDERED: DDAVP0.1 M1 PO ×2 (22:14)
[2020-08-02] MEDS ORDERED: HYDCOR20 PO ×2 (22:15)
== END 2020-08-03 02:34 | disposition home or self-care (01) ==
LOC: ER 17:02
PROVIDERS: Physician Assistant
DX: R44.1 Visual hallucinations (principal); R44.0 Auditory hallucinations; E87.1 Hypo-osmolality and hyponatremia; I10 Essential (primary) hypertension; F17.200 Nicotine dependence, unspecified, uncomplicated; Z98.890 Other specified postprocedural states; Z79.899 Other long term (current) drug therapy
CPT/HCPCS: 36415; 80053; 85025; 93005; 93010; 99285-25; J7030

== ENCOUNTER 2020-08-05 13:04 | Inpatient (IN) | payer OTHER ==
[~2020-08-05] VITALS: Ht 182.9 cm; Wt 122.5 kg
[~2020-08-05 13:04] MED LIST changes: +Abilify2 MG PO; +DDAVP0.1 M1 PO; +ESCI20 PO; +HYDCOR20 PO; +POTCHL20ER PO; +PROPRANOLOL HC160 MG PO
[2020-08-05] MEDS ORDERED: Prinivil10 MG PO (14:47)
[2020-08-05 15:00] LABS: BASOPHILS ABSOLUTE AUTO 0.08 K/mm3 (0.00-0.23); BASOPHILS PERCENT AUTO 1 % (0-2); EOSINOPHILS ABSOLUTE AUTO 0.08 K/mm3 (0.00-0.68); EOSINOPHILS PERCENT AUTO 1 % (0-6); Hematocrit 39.6 % (37.0-53.0); Hemoglobin 12.7 g/dL (13.5-17.5); IMMATURE GRAN ABSOLUTE AUTO 0.17 K/mm3 (0.00-0.10); IMMATURE GRAN PERCENT AUTO 2 % (0-1); LYMPHOCYTES ABSOLUTE AUTO 1.66 K/mm3 (0.84-5.20); LYMPHOCYTES PERCENT AUTO 18 % (21-46); MONOCYTES ABSOLUTE AUTO 0.67 K/mm3 (0.16-1.47); MONOCYTES PERCENT AUTO 7 % (4-13); Mean Corpuscular HGB 33.2 pg (26.0-34.0); Mean Corpuscular HGB Conc 32.1 g/dL (31.5-36.5); Mean Platelet Volume 10.2 fL (9.1-12.4); NEUTROPHILS ABSOLUTE AUTO 6.59 K/mm3 (1.96-9.15); NEUTROPHILS PERCENT AUTO 71 % (41-73); Platelet Count 417 K/mm3 (150-400); RDW Coefficient Variation 15.3 % (11.7-14.2); RDW Standard Deviation 58.2 fL (35.1-46.3); Red Blood Cell Count 3.83 M/mm3 (4.30-5.90); White Blood Cell Count 9.25 K/mm3 (4.00-11.30)
[2020-08-05 15:03] LABS: Mean Corpuscular Volume 103 fL (80-100)
[2020-08-05 15:19] LABS: Albumin, Blood 2.8 g/dL (3.4-5.0); Albumin/Globulin Ratio 0.6 (0.8-1.8); Bilirubin, Total 0.3 mg/dL (0.1-1.0); Calcium, Blood 8.7 mg/dL (8.5-10.1); Creatinine, Blood 1.5 mg/dL (0.60-1.20); Globulin, Blood 4.4 g/dL (2.2-4.0); Potassium, Blood 4.7 mmol/L (3.5-5.5); Total Protein, Blood 7.2 g/dL (6.4-8.2)
[2020-08-05 15:51] LABS: Free Thyroxine 0.52 ng/dL (0.70-1.60); Magnesium, Blood 1.7 mg/dL (1.6-2.4); Thyroid Stimulating Hormone 0.603 uIU/mL (0.360-4.800)
[2020-08-05 16:27] LABS: Source, Urine Clean Catch
[2020-08-05 16:30] LABS: Bilirubin, Urine Neg (Neg); Blood, Urine Neg (Neg); Glucose Qualitative, Urine Neg (Neg); Ketones, Urine 1+ (Neg); Leukocyte Esterase, Urine Neg (Neg); Nitrite, Urine Neg (Neg); Protein, Urine Neg (Neg); Urobilinogen, Urine NORM (Normal)
[2020-08-05 16:48] LABS: Color, Urine Yellow (P-Yellow)
[2020-08-05 16:49] LABS: Appearance, Urine Hazy (Clear); Red Blood Cells, Urine 0-2 /hpf (0-2); Squamous Epithelial Cells Few /hpf (Few)
[2020-08-05 16:50] LABS: Bacteria Few /hpf; Other Crystals Few /hpf
--- NOTE | 2020-08-05 19:30 | NUR ---
SHIFT SUMMARY: PATIENT ADMIT (OBS) FROM ED THIS SHIFT. PT A&O; CALM AND COOPERATIVE WITH CARE. NO C/O PAIN / NAUSEA SINCE ARRIVAL ON MEDICAL. NS X2L IN ED; SOLU-CORTEF 50MG IN ED. STEROIDS CONTINUING. REPORT GIVEN TO ONCOMING RN.
--- NOTE | 2020-08-06 05:24 | NUR ---
PT ADMIT YESTERDAY, A/O, SLEEPY AT BEGGINING OF SHIFT, BLOOD SUGAR SPOT CHECKED PT WAS 187 AFTER EATING. PT SAYS HE IS A DIABETIC, NO INSULIN FOUND ON MEDICATION LIST. DR MCCLELLAND CONSULT CALLED TO ANSWERING SERVICE FOR TODAY. PT SLEPT ON AND OFF THROUGHOUT SHIFT, DENIED ANY NEEDS.
[2020-08-06 05:36] LABS: BASOPHILS ABSOLUTE AUTO 0.06 K/mm3 (0.00-0.23); BASOPHILS PERCENT AUTO 1 % (0-2); EOSINOPHILS ABSOLUTE AUTO 0.06 K/mm3 (0.00-0.68); EOSINOPHILS PERCENT AUTO 1 % (0-6); Hematocrit 39.3 % (37.0-53.0); Hemoglobin 12.4 g/dL (13.5-17.5); IMMATURE GRAN ABSOLUTE AUTO 0.15 K/mm3 (0.00-0.10); IMMATURE GRAN PERCENT AUTO 1 % (0-1); LYMPHOCYTES ABSOLUTE AUTO 1.89 K/mm3 (0.84-5.20); LYMPHOCYTES PERCENT AUTO 17 % (21-46); MONOCYTES ABSOLUTE AUTO 0.98 K/mm3 (0.16-1.47); MONOCYTES PERCENT AUTO 9 % (4-13); Mean Corpuscular HGB 33.3 pg (26.0-34.0); Mean Corpuscular HGB Conc 31.6 g/dL (31.5-36.5); Mean Corpuscular Volume 106 fL (80-100); NEUTROPHILS ABSOLUTE AUTO 7.85 K/mm3 (1.96-9.15); NEUTROPHILS PERCENT AUTO 72 % (41-73); RDW Coefficient Variation 15.6 % (11.7-14.2); RDW Standard Deviation 61.5 fL (35.1-46.3); Red Blood Cell Count 3.72 M/mm3 (4.30-5.90); White Blood Cell Count 10.99 K/mm3 (4.00-11.30)
[2020-08-06 05:58] LABS: Mean Platelet Volume 10.9 fL (9.1-12.4); Platelet Count 317 K/mm3 (150-400)
[2020-08-06 06:07] LABS: Anion Gap 9 mmol/L (6-16); Blood Urea Nitrogen 11 mg/dL (8-24); Bun/Creatinine Ratio 10.2 (12.0-20.0); CO2, Blood 16 mmol/L (21-32); Calcium, Blood 8.1 mg/dL (8.5-10.1); Chloride, Blood 112 mmol/L (98-108); Creatinine, Blood 1.08 mg/dL (0.60-1.20); Glomerular Filtration Rate >60 (60-); Glucose, Blood 112 mg/dL (70-99); Magnesium, Blood 1.6 mg/dL (1.6-2.4); Potassium, Blood 4.3 mmol/L (3.5-5.5); Sodium, Blood 137 mmol/L (136-145)
--- NOTE | 2020-08-06 17:20 | NUR ---
SHIFT SUMMARY PT IS AOX4. PT MEDICATED FOR PAIN X1. PT DENIES N/V, SOB. PT IS ONE PERSON ASSIST IN ROOM. WOUND PICS PLACED IN CHART FOR CYST I&D SITE ON PT'S COCCYX. PT'S APPETITE IS GOOD. PT DID NOT HAVE ANY PROCEDURES TODAY. PLAN IS FOR ENDOCRINOLOGY CONSULT TO SEE PT. PT'S VISITED THIS LELE. PT IS IN BED, CALL LIGHT IN REACH, BED IN LOW POSITION.
--- NOTE | 2020-08-07 05:38 | NUR ---
PT IS A/O, AWAITING DR MCCLELLAND CONSULT, UP IN ROOM IND. SMALL WOUND TO GLUTEAL CRACK. PT REFUSED PAIN MEDICATION THIS SHIFT HE FELT IT DID NOTHING FOR HIS CHRONIC PAIN, SAYS HE TAKES MUCH MORE TRAMADOL AT HOME. VSS PT DID SLEEP THROUGH MOST OF THIS SHIFT CBG AC/HS.
[2020-08-07] MEDS ORDERED: INSULANPEN SC ×2 (15:07)
[2020-08-07] MEDS ORDERED: TRAM50 PO ×2 (15:09)
[2020-08-07] MEDS ORDERED: EUTHYROX175 MCG PO ×2 (15:11)
--- NOTE | 2020-08-07 15:29 | NUR ---
DISCHARGE NOTE PT IS AOX4 AND SLEEPY. THIS RN MENTIONED PT'S INCREASED LETHARGY TODAY TO THE PHYSICIAN WHO SAYS TO CONTINUE WITH DC. PT IV REMOVED FROM LEFT AC BY THIS RN. PT DRESSED SELF IN HOME CLOTHING. MEDS FAXED TO [facility]. HYDROCORTISONE DOSING OF 40 MG ONLY CAME WITH 20 MG TABLETS SO PHARMACY IS DISPENSING 60 TABLETS INSTEAD OF ORIGINAL 30. DC INSTRUCTIONS AND MEDICATIONS REVIEWED WITH PT WHO VERBALIZED AN UNDERSTANDING. PHYSICIAN DID NOT ORDER ANY FOLLOW-UP APPOINTMENTS OR REFERRELS FOR PT. PT BELONGINGS GATHERED AND PRESENT UPON DC. PT LEFT BUILDING IN WHEELCHAIR WITH INSTRUMENT MAKER APPRENTICE.
== END 2020-08-07 16:01 | disposition home or self-care (01) | DRG 644 ==
LOC: ER 13:04 → MEDS 13:05
PROVIDERS: Emergency Medicine; Physician Assistant; ADMIT Internal Medicine
DX: E27.49 Other adrenocortical insufficiency (principal); N17.9 Acute kidney failure, unspecified; E87.2 Acidosis; I95.89 Other hypotension; E86.0 Dehydration; E03.8 Other specified hypothyroidism; I10 Essential (primary) hypertension; E66.9 Obesity, unspecified; G89.4 Chronic pain syndrome; G47.33 Obstructive sleep apnea (adult) (pediatric); F32.9 Major depressive disorder, single episode, unspecified; F41.9 Anxiety disorder, unspecified; E11.9 Type 2 diabetes mellitus without complications; F17.290 Nicotine dependence, other tobacco product, uncomplicated; Z98.890 Other specified postprocedural states; Z79.899 Other long term (current) drug therapy; Z72.89 Other problems related to lifestyle; Z79.84 Long term (current) use of oral hypoglycemic drugs
CPT/HCPCS: 36415; 80048; 80053; 81001; 82947; 83735; 84439; 84443; 85025; 96374; 99284-25; A9270; G0378; J1650; J1720; J7030

== ENCOUNTER 2020-08-13 08:35 | Emergency (ER) | payer OTHER ==
[~2020-08-13] VITALS: Ht 182.9 cm; Wt 125.2 kg
[~2020-08-13 08:35] MED LIST changes: +EUTHYROX175 MCG PO; +INSULANPEN SC
[2020-08-13] MEDS ORDERED: Ddavp0.1 MG PO (10:16)
[2020-08-13] MEDS ORDERED: Abilify2 MG PO (10:16)
[2020-08-13] MEDS ORDERED: LISI20 PO (10:17)
[2020-08-13] MEDS ORDERED: TRAM50 PO (10:18)
[2020-08-13] MEDS ORDERED: POTCHL20ER PO (10:18)
[2020-08-13 10:55] LABS: BASOPHILS ABSOLUTE AUTO 0.11 K/mm3 (0.00-0.23); BASOPHILS PERCENT AUTO 1 % (0-2); EOSINOPHILS ABSOLUTE AUTO 0.22 K/mm3 (0.00-0.68); EOSINOPHILS PERCENT AUTO 2 % (0-6); Hematocrit 42.3 % (37.0-53.0); Hemoglobin 13.8 g/dL (13.5-17.5); IMMATURE GRAN ABSOLUTE AUTO 0.08 K/mm3 (0.00-0.10); IMMATURE GRAN PERCENT AUTO 1 % (0-1); LYMPHOCYTES ABSOLUTE AUTO 2.65 K/mm3 (0.84-5.20); LYMPHOCYTES PERCENT AUTO 25 % (21-46); MONOCYTES ABSOLUTE AUTO 1.15 K/mm3 (0.16-1.47); MONOCYTES PERCENT AUTO 11 % (4-13); Mean Corpuscular HGB 32.5 pg (26.0-34.0); Mean Corpuscular HGB Conc 32.6 g/dL (31.5-36.5); Mean Corpuscular Volume 100 fL (80-100); Mean Platelet Volume 9.6 fL (9.1-12.4); NEUTROPHILS ABSOLUTE AUTO 6.47 K/mm3 (1.96-9.15); NEUTROPHILS PERCENT AUTO 61 % (41-73); Platelet Count 402 K/mm3 (150-400); RDW Coefficient Variation 15.1 % (11.7-14.2); RDW Standard Deviation 55.7 fL (35.1-46.3); Red Blood Cell Count 4.24 M/mm3 (4.30-5.90); White Blood Cell Count 10.68 K/mm3 (4.00-11.30)
[2020-08-13 11:17] LABS: Alanine Aminotransfer (ALT/SGP 115 U/L (12-78); Albumin, Blood 2.9 g/dL (3.4-5.0); Albumin/Globulin Ratio 0.7 (0.8-1.8); Alk Phos 95 U/L (50-136); Anion Gap 10 mmol/L (6-16); Aspartate Aminotrans (AST/SGOT 102 U/L (12-37); Bilirubin, Total 0.7 mg/dL (0.1-1.0); Blood Urea Nitrogen 1 mg/dL (8-24); Bun/Creatinine Ratio 0.9 (12.0-20.0); CO2, Blood 24 mmol/L (21-32); Calcium, Blood 7.6 mg/dL (8.5-10.1); Chloride, Blood 104 mmol/L (98-108); Creatinine, Blood 1.07 mg/dL (0.60-1.20); Glomerular Filtration Rate >60 (60-); Glucose, Blood 137 mg/dL (70-99); Potassium, Blood 3.3 mmol/L (3.5-5.5); Sodium, Blood 138 mmol/L (136-145); Total Protein, Blood 6.9 g/dL (6.4-8.2)
[2020-08-13] MEDS ORDERED: Zofran4 MG PO (11:57)
== END 2020-08-13 13:41 | disposition home or self-care (01) ==
LOC: ER 08:35
PROVIDERS: Emergency Medicine
DX: R11.2 Nausea with vomiting, unspecified (principal); I10 Essential (primary) hypertension; E11.9 Type 2 diabetes mellitus without complications; Z79.899 Other long term (current) drug therapy; Z79.4 Long term (current) use of insulin
CPT/HCPCS: 36415; 80053; 85025; 96361; 96374; 99284-25; A9270; J2405; J7030

== ENCOUNTER 2021-06-10 00:27 | Emergency (ER) | payer OTHER ==
[~2021-06-10] VITALS: Ht 182.9 cm; Wt 95.2 kg
[~2021-06-10 00:27] MED LIST changes: +Ddavp0.1 MG PO; +Zofran4 MG PO
[2021-06-10] MEDS ORDERED: DEPO-TESTO200 MG/11 IM (00:37)
[2021-06-10] MEDS ORDERED: Cleocin HCl150 MG PO (05:43)
== END 2021-06-10 05:58 | disposition home or self-care (01) ==
LOC: ER 00:27
DX: L05.01 Pilonidal cyst with abscess (principal); Z79.899 Other long term (current) drug therapy; I10 Essential (primary) hypertension; E11.9 Type 2 diabetes mellitus without complications; F17.200 Nicotine dependence, unspecified, uncomplicated
CPT/HCPCS: 10080; 93005; 93010; 99283-25; A9270

== ENCOUNTER 2024-04-24 21:41 | Emergency (ER) | payer OTHER ==
[~2024-04-24] VITALS: Ht 177.8 cm; Wt 90.7 kg
[~2024-04-24 21:41] MED LIST changes: +ALPR.5 PO; +Cleocin HCl150 MG PO; +DEPO-TESTO200 MG/11 IM; +DEPO-TESTO200 MG/18 IM
[2024-04-24 21:56] VITALS: BP 140/103
[2024-04-24] MEDS ORDERED: Amoxicillin 875 MG Tab PO ONE (22:00)
[2024-04-24] MEDS ORDERED: Amoxicillin875 MG PO (22:04)
[2024-04-24] MEDS ORDERED: RX Prepack 6 Tabs Oxycodone 5mg UD ONE (22:05)
== END 2024-04-24 22:23 | disposition home or self-care (01) ==
LOC: ER 21:41
DX: K04.7 Periapical abscess without sinus (principal); I10 Essential (primary) hypertension; E11.9 Type 2 diabetes mellitus without complications; E03.9 Hypothyroidism, unspecified; F17.210 Nicotine dependence, cigarettes, uncomplicated; Z79.899 Other long term (current) drug therapy
CPT/HCPCS: 99282; A9270